=== PATIENT | male | born 1930 | race Caucasian/White ===

== ENCOUNTER → 2016-10-16 | Outpatient (CLI) | payer MEDICARE, OTHER | END | disposition home or self-care (01) | LOC: PCVCIMAG 13:12 | PROVIDERS: ATTEND Internal Medicine Cardiovascular Disease | DX: I65.23 Occlusion and stenosis of bilateral carotid arteries (principal); I25.10 Atherosclerotic heart disease of native coronary artery without angina pectoris; E78.5 Hyperlipidemia, unspecified; I73.9 Peripheral vascular disease, unspecified; I10 Essential (primary) hypertension; Z95.1 Presence of aortocoronary bypass graft | CPT/HCPCS: 80061; 93005; 93880; G0463 ==

== ENCOUNTER → 2017-07-03 | Outpatient (CLI) | payer MEDICARE, OTHER ==
--- NOTE | 2017-07-03 17:06 | PCVCIMAG ---
APPROVED REPORT Study performed: 07/03/2017 14:07:23 EXAM: Comprehensive 2D, Doppler, and color-flow Echocardiogram Patient Location: Echo lab Room #: 3Status: routine BSA: 2.09 HR: 50 bpmBP: 106/62 mmHg Rhythm: Bradycardia Other Information Study Quality: Adequate Indications Bradycardia CAD S/P CABG 2D Dimensions LVEF(%): 75.72 (>50%) IVSd: 8.53 (7-11mm)LVOT Diam: 19.50 (18-24mm) LVDd: 48.36 mm PWd: 8.61 (7-11mm)Ascending Ao: 36.37 (22-36mm) LVDs: 26.82 (25-40mm) Left Atrium: 32.39 (27-40mm) Aortic Root: 31.34 mm LV Single Plane 4CH: 57.98 % LV Single Plane 2CH: 69.13 %Cole's LVEF: 63.56 % Biplane EF: 63.9 % Volumes Left Atrial Volume (Systole) Single Plane 4CH: 48.59 mLSingle Plane 2CH: 38.97 mL Biplane LA Volume: 48.00 mLLA ESV Index: 23.00 mL/m2 Aortic Valve AoV Peak Kelvin.: 1.31 m/s AO Peak Gr.: 6.89 mmHgLVOT Max P.83 mmHg LVOT Max V: 0.84 m/s APOORVA Vmax: 1.91 cm2 Mitral Valve E/A Ratio: 0.8 MV Decel. Time: 249.69 ms MV E Max Kelvin.: 0.89 m/s MV A Kelvin.: 1.08 m/s MV PHT: 72.41 ms IVRT: 76.12 ms TDI E/Lateral E': 12.71E/Medial E': 11.13 Medial E' Kelvin.: 0.08 m/s Lateral E' Kelvin.: 0.07 m/s Pulmonary Valve PV Peak Kelvin.: 0.76 m/sPV Peak Gr.: 2.30 mmHg Pulmonary Vein P Vein S: 0.67 m/sP Vein A: 0.25 m/s P Vein D: 0.52 m/sP Vein A Dur.: 128.0 msec P Vein S/D Ratio: 1.29 Tricuspid Valve TR Peak Kelvin.: 2.43 m/s TR Peak Gr.: 23.52 mmHg TV Vmax: 0.59 m/sPA Pressure: 31.00 mmHg Left Ventricle The left ventricle is normal size. There is normal LV segmental wall motion. There is normal left ventricular wall thickness. Left ventricular systolic function is normal. The left ventricular ejection fraction is within the normal range. LVEF is 60-65%. Transmitral Doppler flow pattern suggests impaired LV relaxation. Right Ventricle The right ventricle is normal size. The right ventricular systolic function is normal. Atria The left atrium size is normal. The right atrium size is normal. Aortic Valve The aortic valve is normal in structure. No aortic regurgitation is present. There is no aortic valvular stenosis. Mitral Valve The mitral valve is normal in structure. There is no mitral valve regurgitation noted. No evidence of mitral valve stenosis. Tricuspid Valve The tricuspid valve is normal in structure. There is mild tricuspid valve regurgitation noted with a PA pressure of 31 mmHg. No pulmonary hypertension. Pulmonic Valve The pulmonary valve is normal in structure. There is mild pulmonic valvular regurgitation. Great Vessels The aortic root is normal in size. The ascending aorta is normal in size. IVC is normal in size and collapses with >50% inspiration Pericardium There is no pericardial effusion. There is no pleural effusion. <Conclusion> The left ventricle is normal size. LVEF is 60-65%. Transmitral Doppler flow pattern suggests impaired LV relaxation. The right ventricular systolic function is normal. The left atrium size is normal. The aortic valve is normal in structure. There is no mitral valve regurgitation noted. There is mild tricuspid valve regurgitation noted with a PA pressure of 31 mmHg. No pulmonary hypertension. There is no pericardial effusion.
== END | disposition home or self-care (01) ==
LOC: PCVCIMAG 13:52
PROVIDERS: ATTEND Internal Medicine Cardiovascular Disease
DX: I25.10 Atherosclerotic heart disease of native coronary artery without angina pectoris (principal); R00.1 Bradycardia, unspecified; I07.1 Rheumatic tricuspid insufficiency; I37.1 Nonrheumatic pulmonary valve insufficiency; I73.9 Peripheral vascular disease, unspecified; I10 Essential (primary) hypertension; I65.29 Occlusion and stenosis of unspecified carotid artery; Z95.1 Presence of aortocoronary bypass graft; Z87.891 Personal history of nicotine dependence; Z79.82 Long term (current) use of aspirin; Z79.899 Other long term (current) drug therapy
CPT/HCPCS: 93005; 93306; G0463

== ENCOUNTER → 2018-02-03 | Outpatient (CLI) | payer MEDICARE, OTHER | END | disposition home or self-care (01) | LOC: PCVCCLINIC 15:04 | DX: I25.10 Atherosclerotic heart disease of native coronary artery without angina pectoris (principal); I73.9 Peripheral vascular disease, unspecified; E78.00 Pure hypercholesterolemia, unspecified; I65.29 Occlusion and stenosis of unspecified carotid artery; Z95.1 Presence of aortocoronary bypass graft; Z87.891 Personal history of nicotine dependence | CPT/HCPCS: 80061; 93005; G0463 ==

== ENCOUNTER → 2018-05-25 | Outpatient (CLI) | payer MEDICARE, OTHER ==
--- NOTE | 2018-05-25 14:33 | PCVCIMAG ---
APPROVED REPORT Study performed: 05/25/2018 13:26:36 Exam: Stress Echocardiogram Indication: CAD s/p CABG Patient Location: Echo lab Stress Nurse: Falguni Davis RN Status: routine Ht: 5 ft 10 in HR: 60 bpm BP: 120/60 mmHg Rhythm: NSR Medical History Medical History: CAD s/p CABG, Hyperlipidemia, HTN Procedure The patient underwent an Exercise Stress Test using the Edin Protocol. Blood pressure, heart rate, and EKG were monitored. An Echocardiogram was performed by process engineering technician in four stages in quad fashion. At peak stress, four selected images were obtained and placed side by side with resting images for comparison. Stress Test Details Stress Test: Exercise stress testing was performed using a Edin protocol. HR Resting HR: 60 bpmMax Heart Rate (APMHR): 133 bpm Max HR Achieved: 142 bpmTarget HR (85% APMHR): 113 bpm % of APMHR: 106 Recovery HR: 139 bpm HR response to stress: Normal HR response to stress BP Resting BP: 120/60 mmHg Max BP: 188/66 mmHg ECG Resting ECG: Sinus Rhythm Stress ECG: Sinus Rhythm Arrhythmia: VPC's Recovery ECG: Sinus Rhythm Recovery Arrhythmia: VPC Clinical Reason for Termination: Maximal effort Exercise duration: 5 min sec Highest Stage Achieved: Stage 2: 2.5 mph at 12% grade. Exercise capacity: 7.00 METs Overall Exercise Capacity for Age: Good Pre-Stress Echo The resting Echocardiogram showed normal left ventricular contractility with an estimated Ejection Fraction of about >55%. Normal wall motion in all segments on baseline images. Post-Stress Echo The stress Echocardiogram showed normal left ventricular contractility with an estimated Ejection Fraction of about 55-60%. Normal augmentation of wall motion in all segments on post stress images. Clinical No clinical or ECG evidence for ischemia. Conclusion Clinical Response: Non-ischemic Exercise Capacity: Average Stress ECG Response: Non-ischemic Stress Echo Images: Non-ischemic The left ventricle is normal in size and wall thickness in both the rest and stress images. Other Information Study Quality: Adequate <Conclusion> The left ventricle is normal in size and wall thickness in both the rest and stress images.
== END | disposition home or self-care (01) ==
LOC: PCVCIMAG 13:30
PROVIDERS: ATTEND Internal Medicine Cardiovascular Disease
DX: I25.10 Atherosclerotic heart disease of native coronary artery without angina pectoris (principal); Z95.1 Presence of aortocoronary bypass graft
CPT/HCPCS: 93325; 93351

== ENCOUNTER → 2019-02-08 | Outpatient (CLI) | payer MEDICARE, OTHER | END | disposition home or self-care (01) | LOC: PCVCCLINIC 14:14 | PROVIDERS: ATTEND Internal Medicine Cardiovascular Disease | DX: I25.10 Atherosclerotic heart disease of native coronary artery without angina pectoris (principal); I10 Essential (primary) hypertension; E78.00 Pure hypercholesterolemia, unspecified; I65.29 Occlusion and stenosis of unspecified carotid artery; E78.5 Hyperlipidemia, unspecified; Z79.82 Long term (current) use of aspirin; Z87.891 Personal history of nicotine dependence; Z88.8 Allergy status to other drugs, medicaments and biological substances | CPT/HCPCS: 36415; 80061; 93005; G0463 ==